=== PATIENT | male | born 1975 | race Hispanic/Latino ===

== ENCOUNTER 2019-08-12 | Emergency (ER) | payer OTHER ==
[2019-08-12] MEDS ORDERED: CODEINE/GUAIFEN1 SOL PO (14:22)
[2019-08-12] MEDS ORDERED: AUGMENTIN500TAB PO (14:22)
== END 2019-08-12 14:59 | disposition home or self-care (01) | DRG 203 ==
DX: J40 Bronchitis, not specified as acute or chronic (principal); I10 Essential (primary) hypertension

== ENCOUNTER 2021-03-22 05:06 | Observation (INO) | payer OTHER ==
[~2021-03-22] VITALS: Ht 167.6 cm; Wt 95.0 kg
[~2021-03-22 05:06] MED LIST: AUGMENTIN500TAB PO; CODEINE/GUAIFEN1 SOL PO
--- NOTE | 2021-03-22 05:06 | NUR ---
BY EMS TO ROOM
[2021-03-22] MEDS ORDERED: COZAAR25 MG PO (05:38)
[2021-03-22] MEDS ORDERED: ATORVASTATIN CA20 MG PO (05:39)
--- NOTE | 2021-03-22 06:00 | NUR ---
RESTING QUIETLY AWAITING TEST RESULTS.
[2021-03-22 06:06] LABS: HEMATOCRIT 40.9 % (39.0-50.0); HEMOGLOBIN 13.5 g/dl (14.0-18.0); IMMATURE GRANULOCYTES 0.4 % (0.0-5.0); MEAN CELL VOLUME 87.8 fL CALC (80.0-100.0); NEUT# 6.59 thou/uL (1.82-7.42); RED BLOOD COUNT 4.66 mill/uL (4.70-6.10); RED CELL DISTRI WIDTH 13.3 % (11.5-15.5)
[2021-03-22 06:12] LABS: ALBUMIN 4.3 g/dL (3.2-5.0); ALKALINE PHOSPHATASE 79 u/l (38-126); ANION GAP 11 (6-22 (CALC)); BILIRUBIN, TOTAL 0.4 mg/dL (0.0-1.4); BUN 13 mg/dL (9-20); BUN/CREATININE RATIO 18 (12-20 (CALC)); CARBON DIOXIDE 24 mmol/l (22-30); CHLORIDE 106 mmol/l (95-108); CREATININE 0.7 mg/dL (0.7-1.3); GFR > 60 ML/MIN (>=60 (CALC)); GFR FOR AFR.AMER. > 60 ML/MIN (>=60 (CALC)); POTASSIUM 3.9 mmol/l (3.5-5.1); SGOT/AST 33 u/l (17-59); SODIUM 137 mmol/l (137-146); TOTAL PROTEIN 7.6 g/dL (6.3-8.2)
[2021-03-22 06:24] LABS: MYOGLOBIN 34 ng/mL (0 - 121)
--- NOTE | 2021-03-22 06:40 | NUR ---
STATES MINIMAL CHEST PAIN.
[2021-03-22 06:52] LABS: URINE BILIRUBIN - DIPSTICK NEGATIVE (NEGATIVE); URINE BLOOD DIPSTICK NEGATIVE (NEGATIVE); URINE COLOR YELLOW; URINE GLUCOSE - DIPSTICK NEGATIVE (NEGATIVE); URINE KETONE NEGATIVE (NEGATIVE); URINE LEUK ESTERASE NEGATIVE (NEGATIVE); URINE PROTEIN - DIPSTICK NEGATIVE (NEG-TRACE); URINE UROBILINOGEN - DIPSTICK 0.2 E.U./dL (0.2)
[2021-03-22 06:57] LABS: URINE NITRITE - DIPSTICK NEGATIVE (Negative)
--- NOTE | 2021-03-22 07:25 | NUR ---
RECIEVED FOR CARE, RESTING QUIETLY. BED IN LOW POSITION.
--- NOTE | 2021-03-22 08:00 | NUR ---
MEAL TRAY GIVEN.
--- NOTE | 2021-03-22 08:28 | NUR ---
CALLED FOR REPORT TO HAJA MARTINEZ. TELE ON, BELONGING LIST COMPLETED
--- NOTE | 2021-03-22 08:52 | NUR ---
PATIENT CAME FROM ER VIA WHEELCHAIR. TURBO GENERATOR OILER IN ROOM TO OBTAIN VS. TELE IN PLACE. SAFETY PRECAUTIONS REINFORCED AND CALL LIGHT IN REACH. PATIENT DENIES NEEDS AT THIS TIME.
--- NOTE | 2021-03-22 08:54 | NUR ---
transferred to ms room 274. iv intact, patieny stable.
[2021-03-22 09:00] VITALS: BP 161/103
[2021-03-22 10:52] VITALS: BP 150/70
--- NOTE | 2021-03-22 11:03 | NUR ---
PATIENT IS IN BED. ASSESSMENT DONE. PATIENT IS ALERT AND ORIENT X3. PATIENT DENIES PAIN AT THIS TIME. RESPS EVEN AND UNLABORED. PATIENT STATED HE IS ANXIOUS AND HE HAS FAMILY ISSUES. TELE IN PLACE. SKIN INTACT. PATIENT DENIES NEEDS. CALL LIGHT IN REACH.
[2021-03-22 14:15] VITALS: BP 144/90
--- NOTE | 2021-03-22 16:09 | NUR ---
PATIENT IS RESTING IN BED WITH NO DISTERSS NOTED AT THIS TIME. PATIENT STATE NO PAIN AT THIS TIME. PATIENT DENIES NEEDS. TELE IN PLACE. CALL LIGHT IN REACH.
== END 2021-03-22 19:52 | disposition home or self-care (01) | DRG 313 ==
LOC: ED 05:06 → ED-I 06:49 → ED 07:03 → MS2 07:04
PROVIDERS: Emergency Medicine; ADMIT Hospitalist; ATTEND Hospitalist
DX: R07.9 Chest pain, unspecified (principal); I10 Essential (primary) hypertension; F41.9 Anxiety disorder, unspecified; J40 Bronchitis, not specified as acute or chronic; E78.5 Hyperlipidemia, unspecified; Z20.822 Contact with and (suspected) exposure to COVID-19
CPT/HCPCS: G0378; J1610; Q9967